=== PATIENT | female | born 1955 | race Caucasian/White ===

== ENCOUNTER 2021-01-03 14:59 | Inpatient (IN) ==
[2021-01-03] MEDS ORDERED: Naloxone 0.4 MG/ML INJ IVP PRN (17:17)
[2021-01-03] MEDS ORDERED: Meropenem 1,000 MG in 0.9 % Sodium Chloride Mini Bag 100 ML IVPB SCH (17:27)
[2021-01-03] MEDS ORDERED: 0.9 % Sodium Chloride 1,000 ML IVC ONE (17:29)
[2021-01-03] MEDS ORDERED: 0.9 % Sodium Chloride 1,000 ML IVC SCH (17:30)
[2021-01-03] MEDS ORDERED: Ondansetron 4 MG/2 ML VIAL IVP PRN (18:09)
[2021-01-03] MEDS: Acetaminophen 325 MG TABLET PO PRN (20:28)
[2021-01-03] MEDS: 0.9 % Sodium Chloride 1,000 ML IVC SCH (22:42)
[2021-01-04 02:28] LABS: Basophils % 0.2 %; Mean Corpuscular HGB Conc 32.4 g/dL (31.6-35.5)
[2021-01-04 02:30] LABS: Eosinophils % 0.5 %; Immature Granulocytes % 0.7 % (0-4); Immature Platelets 16.1 % (1.1-6.1); Mean Corpuscular Hemoglobin 28.9 pg (28.0-33.3); Mean Corpuscular Volume 89.2 fL (83.0-100.0); Mean Platelet Volume 13.5 fL (9.4-12.4); Monocytes # 0.4 K/mcL (0.0-1.3); Monocytes % 9.8 %; Neutrophils # 2.8 K/mcL (1.6-8.9); Red Blood Count 3.81 M/mcL (3.82-4.97); Red Cell Distribution Width 13.6 % (11.5-14.5); Segmented Neutrophils % 65.8 %; White Blood Count 4.2 K/mcL (4.3-11.1)
[2021-01-04 02:32] LABS: Platelet Count 32 K/mcL (140-400)
[2021-01-04 02:45] LABS: BUN/Creatinine Ratio 12 (6-26); Blood Urea Nitrogen 12 mg/dL (8-23); Calcium 7.7 mg/dL (8.6-10.3); Carbon Dioxide 15 mEq/L (23-29); Chloride 114 mEq/L (98-107); Glucose 95 mg/dL (70-105); Osmolality,Calculated 286 (280-300); Potassium 4.7 mEq/L (3.5-5.1); Sodium 138 mEq/L (136-145); eGFR For African Americans > 60 (> 60); eGFR For Non-African Americans 54 (> 60)
[2021-01-04] MEDS: Acetaminophen 325 MG TABLET PO PRN ×3 (03:11→20:20)
[2021-01-04] MEDS: Meropenem 1,000 MG in 0.9 % Sodium Chloride Mini Bag 100 ML IVPB SCH ×3 (05:08→20:16)
[2021-01-04] MEDS ORDERED: Isovue-370 500 ML BOTTLE IVP ONE (08:11)
[2021-01-04] MEDS: 0.9 % Sodium Chloride 1,000 ML IVC SCH ×2 (10:47→20:54)
[2021-01-04] MEDS ORDERED: Saline Nasal Spray 44 ML BOTTLE NS PRN (22:25)
[2021-01-04] MEDS: *HR* HYDROcodone/Acet 5/325 mg TABLET PO PRN (22:45)
[2021-01-05] MEDS: Acetaminophen 325 MG TABLET PO PRN ×3 (02:56→15:37)
[2021-01-05 03:14] LABS: Red Cell Distribution Width 13.8 % (11.5-14.5)
[2021-01-05 03:16] LABS: Hematocrit 27.9 % (35.3-44.9); Hemoglobin 9.1 g/dL (11.5-15.4); Immature Platelets 13.1 % (1.1-6.1); Lymphocytes # 0.4 K/mcL (0.6-4.6); Lymphocytes % 19.9 %; Mean Corpuscular HGB Conc 32.6 g/dL (31.6-35.5); Mean Corpuscular Hemoglobin 29.4 pg (28.0-33.3); Mean Corpuscular Volume 90.3 fL (83.0-100.0); Mean Platelet Volume 12.9 fL (9.4-12.4); Monocytes # 0.2 K/mcL (0.0-1.3); Red Blood Count 3.09 M/mcL (3.82-4.97); Segmented Neutrophils % 67.1 %
[2021-01-05 03:19] LABS: Neutrophils # 1.3 K/mcL (1.6-8.9); Platelet Count 46 K/mcL (140-400)
[2021-01-05 03:56] LABS: Anisocytosis 1+ (Not Present); Platelet Estimate Marked Decrease (Normal); Reactive Lymphocytes Present (Not Present)
[2021-01-05 04:42] LABS: BUN/Creatinine Ratio 14 (6-26); Blood Urea Nitrogen 11 mg/dL (8-23); Calcium 7.9 mg/dL (8.6-10.3); Carbon Dioxide 18 mEq/L (23-29); Chloride 112 mEq/L (98-107); Glucose 103 mg/dL (70-105); Osmolality,Calculated 282 (280-300); Potassium 4.1 mEq/L (3.5-5.1); Sodium 136 mEq/L (136-145); eGFR For African Americans > 60 (> 60); eGFR For Non-African Americans > 60 (> 60)
[2021-01-05] MEDS: Meropenem 1,000 MG in 0.9 % Sodium Chloride Mini Bag 100 ML IVPB SCH (04:59)
[2021-01-05] MEDS: 0.9 % Sodium Chloride 1,000 ML IVC SCH (07:52)
[2021-01-05] MEDS: Ertapenem 1,000 MG in 0.9 % Sodium Chloride Mini Bag 100 ML IVPB SCH (13:19)
[2021-01-05] MEDS: *HR* HYDROcodone/Acet 5/325 mg TABLET PO PRN (19:51)
[2021-01-06 07:50] LABS: Mean Platelet Volume 12.7 fL (9.4-12.4)
[2021-01-06 07:52] LABS: Hemoglobin 8.6 g/dL (11.5-15.4); Immature Platelets 13.7 % (1.1-6.1); Mean Corpuscular HGB Conc 33.1 g/dL (31.6-35.5); Mean Corpuscular Hemoglobin 28.9 pg (28.0-33.3); Mean Corpuscular Volume 87.2 fL (83.0-100.0); Red Blood Count 2.98 M/mcL (3.82-4.97); Red Cell Distribution Width 14.1 % (11.5-14.5); Segmented Neutrophils % 61.9 %
[2021-01-06 07:53] LABS: Eosinophils # 0.1 K/mcL (0.0-0.6); Lymphocytes # 0.5 K/mcL (0.6-4.6); Lymphocytes % 23.4 %; Monocytes # 0.2 K/mcL (0.0-1.3); Monocytes % 10.7 %; Neutrophils # 1.2 K/mcL (1.6-8.9); Platelet Count 63 K/mcL (140-400)
[2021-01-06] MEDS: *HR* HYDROcodone/Acet 5/325 mg TABLET PO PRN (08:06)
[2021-01-06 08:12] LABS: BUN/Creatinine Ratio 12 (6-26); Blood Urea Nitrogen 8 mg/dL (8-23); Calcium 8.1 mg/dL (8.6-10.3); Carbon Dioxide 24 mEq/L (23-29); Chloride 108 mEq/L (98-107); Glucose 118 mg/dL (70-105); Osmolality,Calculated 285 (280-300); Potassium 3.1 mEq/L (3.5-5.1); Sodium 138 mEq/L (136-145); eGFR For African Americans > 60 (> 60); eGFR For Non-African Americans > 60 (> 60)
[2021-01-06] MEDS: Fluticasone Propionate Nasal 50 MCG/SPRAY BOTTLE NS SCH (11:17)
[2021-01-06] MEDS: Loratadine/Pseudophed (12 HR) 1 EACH TABLET PO SCH ×2 (11:18→20:21)
[2021-01-06] MEDS: Ertapenem 1,000 MG in 0.9 % Sodium Chloride Mini Bag 100 ML IVPB SCH (12:58)
[2021-01-07] MEDS: *HR* HYDROcodone/Acet 5/325 mg TABLET PO PRN ×2 (01:22→07:41)
[2021-01-07 01:35] LABS: Immature Granulocytes % 2.3 % (0-4)
[2021-01-07 01:37] LABS: Basophils % 0.4 %; Eosinophils # 0.1 K/mcL (0.0-0.6); Eosinophils % 3.5 %; Hematocrit 26.8 % (35.3-44.9); Hemoglobin 8.6 g/dL (11.5-15.4); Immature Platelets 10.3 % (1.1-6.1); Lymphocytes # 0.6 K/mcL (0.6-4.6); Lymphocytes % 22.3 %; Mean Corpuscular HGB Conc 32.1 g/dL (31.6-35.5); Mean Corpuscular Volume 90.2 fL (83.0-100.0); Mean Platelet Volume 11.7 fL (9.4-12.4); Monocytes # 0.3 K/mcL (0.0-1.3); Monocytes % 9.6 %; Neutrophils # 1.6 K/mcL (1.6-8.9); Red Blood Count 2.97 M/mcL (3.82-4.97); Red Cell Distribution Width 13.8 % (11.5-14.5); Segmented Neutrophils % 61.9 %; White Blood Count 2.6 K/mcL (4.3-11.1)
[2021-01-07 01:43] LABS: Platelet Count 74 K/mcL (140-400)
[2021-01-07 01:56] LABS: % Iron Saturation 5 % (15-50); BUN/Creatinine Ratio 16 (6-26); Blood Urea Nitrogen 12 mg/dL (8-23); Calcium 8.5 mg/dL (8.6-10.3); Carbon Dioxide 29 mEq/L (23-29); Chloride 105 mEq/L (98-107); Glucose 125 mg/dL (70-105); Iron 10 mcg/dL (50-170); Osmolality,Calculated 289 (280-300); Potassium 3.3 mEq/L (3.5-5.1); Sodium 139 mEq/L (136-145); Transferrin 150 mg/dL (203-362); eGFR For African Americans > 60 (> 60); eGFR For Non-African Americans > 60 (> 60)
[2021-01-07 02:15] LABS: Ferritin 329 ng/mL (10-120)
[2021-01-07 02:20] LABS: Folate 6.2 ng/mL (3.0-16.0)
[2021-01-07] MEDS: Fluticasone Propionate Nasal 50 MCG/SPRAY BOTTLE NS SCH (07:39)
[2021-01-07] MEDS: Loratadine/Pseudophed (12 HR) 1 EACH TABLET PO SCH (07:41)
[2021-01-07] MEDS: Ertapenem 1,000 MG in 0.9 % Sodium Chloride Mini Bag 100 ML IVPB SCH (12:29)
[2021-01-07] MEDS ORDERED: Magnesium Sulfate 1 GM/102 ML PIGGYBACK IVPB ONE (13:54)
[2021-01-07 15:25] VITALS: BP 133/80; PULSE 97; TEMP 97.7; O2SAT 98
[2021-01-09 13:10] LABS: Lambda Qnt Free Light Chains 21.21 mg/L (5.71-26.30)
[2021-01-09 14:58] LABS: Kappa Qnt Free Light Chains 20.12 mg/L (3.30-19.40)
[2021-01-12 04:40] LABS: Alpha 2 Globulin (PEP) 0.74 g/dL (0.48-1.05); Beta Globulin (PEP) 0.64 g/dL (0.48-1.10)
[2021-01-12 08:22] LABS: IFE Reflexed IFE Done
[2021-01-12 08:23] LABS: Immunoglobulin A 176 mg/dL (68-408); Immunoglobulin G 464 mg/dL (768-1632); Immunoglobulin M 21 mg/dL (35-263)
== END 2021-01-07 19:36 | disposition home health service (06) | DRG 872 ==
LOC: 2NENU → SUATTDRO 17:00
PROVIDERS: ADMIT Internal Medicine; ATTEND Family Medicine

== ENCOUNTER 2021-12-08 15:49 | Inpatient (IN) ==
[2021-12-08] MEDS ORDERED: Naloxone 0.4 MG/ML INJ IVP PRN (19:36)
[2021-12-08] MEDS ORDERED: Melatonin 3 MG TABLET PO PRN (19:36)
[2021-12-08] MEDS ORDERED: Ondansetron 4 MG/2 ML VIAL IVP PRN (19:36)
[2021-12-08] MEDS ORDERED: 0.9 % Sodium Chloride 500 ML IVC ONE (20:22)
[2021-12-08 21:05] LABS: Phosphorous 4.2 mg/dL (2.7-4.5)
[2021-12-08] MEDS ORDERED: Sulfamethoxazole/Trimeth DS 1 EACH TABLET PO ONE (21:12)
[2021-12-08] MEDS: 0.9 % Sodium Chloride 1,000 ML IVC SCH (21:42)
[2021-12-08] MEDS ORDERED: Iopamidol - 370 500 ML MLS IVP ONE (22:28)
[2021-12-08] MEDS: *HR* Heparin 5,000 UNIT/ML VIAL SQ SCH (23:25)
[2021-12-09] LABS: Folate 20.2 ng/mL (3.0-16.0)
[2021-12-09] MEDS ORDERED: Meropenem 1,000 MG in 0.9 % Sodium Chloride 20 ML IVP SCH
[2021-12-09 04:44] LABS: Hematocrit 34.4 % (35.3-44.9); Hemoglobin 11.1 g/dL (11.5-15.4); Mean Corpuscular HGB Conc 32.3 g/dL (31.6-35.5); Mean Corpuscular Hemoglobin 29.1 pg (28.0-33.3); Mean Corpuscular Volume 90.1 fL (83.0-100.0); Mean Platelet Volume 11.5 fL (9.4-12.4); Red Blood Count 3.82 M/mcL (3.82-4.97); Red Cell Distribution Width 14.4 % (11.5-14.5); White Blood Count 8.1 K/mcL (4.3-11.1)
[2021-12-09 05:09] LABS: Albumin 3.3 g/dL (3.5-5.7); Albumin/Globulin Ratio 1.2 (1.1-2.2); Bilirubin,Total 0.8 mg/dL (0.3-1.0); Calcium 8.7 mg/dL (8.6-10.3); Globulin 2.7 g/dL (2.4-3.5); Potassium 4.3 mEq/L (3.5-5.1)
[2021-12-09] MEDS: *HR* Heparin 5,000 UNIT/ML VIAL SQ SCH (05:48)
[2021-12-09] MEDS ORDERED: Sulfamethoxazole/Trimeth SS 1 TAB PO SCH (09:00)
[2021-12-10 01:47] LABS: Basophils % 0.2 %; Hemoglobin 9.6 g/dL (11.5-15.4); Mean Platelet Volume 11.1 fL (9.4-12.4)
[2021-12-10 01:49] LABS: Eosinophils # 0.2 K/mcL (0.0-0.6); Eosinophils % 4.6 %; Hematocrit 30.1 % (35.3-44.9); Immature Granulocytes % 0.7 % (0-4); Immature Platelets 4.8 % (1.1-6.1); Lymphocytes # 0.9 K/mcL (0.6-4.6); Lymphocytes % 19.6 %; Mean Corpuscular HGB Conc 31.9 g/dL (31.6-35.5); Mean Corpuscular Hemoglobin 29.2 pg (28.0-33.3); Mean Corpuscular Volume 91.5 fL (83.0-100.0); Monocytes # 0.3 K/mcL (0.0-1.3); Monocytes % 7.3 %; Platelet Count 101 K/mcL (140-400); Red Blood Count 3.29 M/mcL (3.82-4.97); Red Cell Distribution Width 14.3 % (11.5-14.5); Segmented Neutrophils % 67.6 %; White Blood Count 4.4 K/mcL (4.3-11.1)
[2021-12-10 02:10] LABS: Potassium 4.1 mEq/L (3.5-5.1)
[2021-12-10] MEDS: 0.9 % Sodium Chloride 1,000 ML IVC SCH ×3 (03:54→17:57)
[2021-12-10] MEDS: Ertapenem 1,000 MG in 0.9 % Sodium Chloride Mini Bag 100 ML IVPB SCH (10:22)
[2021-12-11] MEDS: 0.9 % Sodium Chloride 1,000 ML IVC SCH ×2 (01:22→09:09)
[2021-12-11 01:47] LABS: Basophils % 0.3 %; Hematocrit 29.4 % (35.3-44.9)
[2021-12-11 01:49] LABS: Eosinophils # 0.2 K/mcL (0.0-0.6); Eosinophils % 4.6 %; Hemoglobin 9.3 g/dL (11.5-15.4); Immature Granulocytes % 1.4 % (0-4); Immature Platelets 8.1 % (1.1-6.1); Lymphocytes # 0.7 K/mcL (0.6-4.6); Lymphocytes % 18.4 %; Mean Corpuscular HGB Conc 31.6 g/dL (31.6-35.5); Mean Corpuscular Hemoglobin 29.2 pg (28.0-33.3); Mean Corpuscular Volume 92.5 fL (83.0-100.0); Mean Platelet Volume 11.8 fL (9.4-12.4); Monocytes # 0.3 K/mcL (0.0-1.3); Monocytes % 7.6 %; Neutrophils # 2.5 K/mcL (1.6-8.9); Red Blood Count 3.18 M/mcL (3.82-4.97); Red Cell Distribution Width 14.2 % (11.5-14.5); Segmented Neutrophils % 67.7 %; White Blood Count 3.7 K/mcL (4.3-11.1)
[2021-12-11 02:11] LABS: Calcium 8.2 mg/dL (8.6-10.3); Potassium 4.3 mEq/L (3.5-5.1)
[2021-12-11 02:18] LABS: Platelet Count 90 K/mcL (140-400)
[2021-12-11] MEDS: Ertapenem 1,000 MG in 0.9 % Sodium Chloride Mini Bag 100 ML IVPB SCH (09:06)
[2021-12-12 02:22] LABS: BUN/Creatinine Ratio 13 (6-26); Blood Urea Nitrogen 13 mg/dL (8-23); Calcium 8.8 mg/dL (8.6-10.3); Carbon Dioxide 24 mEq/L (23-29); Chloride 109 mEq/L (98-107); Glucose 106 mg/dL (70-105); Osmolality,Calculated 291 (280-300); Sodium 140 mEq/L (136-145); eGFR For African Americans > 60 (> 60); eGFR For Non-African Americans 55 (> 60)
[2021-12-12 06:51] VITALS: O2SAT 96
[2021-12-12 12:51] VITALS: BP 132/74; PULSE 90; TEMP 98.5
[2021-12-12] MEDS ORDERED: Sulfamethoxazole/Trimeth DS 1 EACH TABLET PO SCH (21:00)
== END 2021-12-12 13:25 | disposition home or self-care (01) | DRG 682 ==
LOC: 3ANU → SUATTDRO 18:45
PROVIDERS: ADMIT Hospitalist; ATTEND General Practice